=== PATIENT | female | born 1940 | race Caucasian/White ===

== ENCOUNTER 2022-07-24 14:24 | Emergency (ER) | payer MEDICARE, SELFPAY ==
--- NOTE | ~2022-07-24 | CT_ITS ---
EXAMINATION: CT brain wo con DATE: 07/24/2022 14:59 INDICATION: Head injury. TECHNIQUE: Computed tomography (CT) of the head was performed without intravenous contrast. The mA wa s adjusted according to patient size. Iterative reconstruction technique was employed. The dose-lengt h product was 605.33 mGy-cm. COMPARISON: None FINDINGS: There are scattered areas of low attenuation in the cerebral white matter. There is no intr acranial hemorrhage, acute infarction, or abnormal intracranial mass lesion. The ventricles are oma l in size. There are likely changes of ocular lens replacement surgeries. There are fractures of righ t zygomatic arch and posterolateral wall of right maxillary sinus. There is hematoma in right maxilla ry sinus. The mastoid air cells are normal. IMPRESSION: 1. Moderate nonspecific cerebral white matter disease, which likely represents chronic small vessel i schemic disease. 2. Right zygomaticomaxillary complex fractures. Reviewed, dictated and finalized at location A. IMPRESSION: 1. Moderate nonspecific cerebral white matter disease, which likely represents chronic small vessel ischemic disease. 2. Right zygomaticomaxillary complex fractures.
--- NOTE | ~2022-07-24 | XR_ITS ---
EXAMINATION: XR shoulder RT min 2V DATE: 07/24/2022 15:04 INDICATION: Fall with bruising and limited range of motion at the right shoulder TECHNIQUE: AP internally and externally rotated, AP oblique externally rotated and transscapular Y vi ews of the right shoulder were obtained. COMPARISON: None FINDINGS: Comminuted proximal right humeral fracture. This includes a transverse fracture to surgical neck with posterior angulation and posterior impaction with approximately 2 cm proximal migration of the poste rior margin of the fracture relative to the corresponding fracture margin of the humeral head. Fina l head remains normally centered over the glenoid but is rotated as with elevation of the arm. Mildly displaced fracture plane involving the greater tuberosity which is from the humeral head b y 4-5 mm wide lucency with irregular margins. There is a small minimally displaced fracture fragment anteromedially which appears to involve the caudal aspect of the lesser tuberosity. No other fracture s identified. Specifically the scapula and clavicle remain intact with mild acromioclavicular osteoar thritis. Small marginal osteophytes along the posterior glenoid consistent with at least mild glenohu meral osteoarthritis. There appears be some soft tissue swelling at the proximal upper arm. There is a focal airspace opacity in the right middle lobe best appreciated on the Grashey projection which co uld represent atelectasis or pneumonia. IMPRESSION: 1. Comminuted two-part fracture the proximal right humerus. 2. Small region of consolidation in the right middle lobe which could represent atelectasis or pneumo bj. Reviewed, dictated and finalized at location A. IMPRESSION: 1. Comminuted two-part fracture the proximal right humerus. 2. Small region of consolidation in the right middle lobe which could represent atelectasis or pneumonia.
--- NOTE | ~2022-07-24 | CT_ITS ---
EXAMINATION: CT facial & cervical spine wo DATE: 07/24/2022 14:59 INDICATION: Head injury. TECHNIQUE: Computed tomography (CT) of the maxillofacial region and cervical spine was performed with out intravenous contrast. Automated exposure control and iterative reconstruction technique were empl oyed. The dose-length product was 148.95 mGy-cm. COMPARISON: None FINDINGS: MAXILLOFACIAL CT: There are fractures of the right zygomatic arch, lateral wall and floor of right orbit, and posterola teral and anterior faria of right maxillary sinus. There is hematoma in right maxillary sinus. There are likely changes of ocular lens replacement surgeries. There is cerumen in the external auditory ca nals. CERVICAL SPINE CT: There is mild scarring at the lung apices. There is kyphosis and 11 degrees thoracic scoliosis of cer vical spine. Vertebral body heights are normal. There is moderately decreased disc height at C3-C4 an d severely decreased disc height from C4-C5 through C7-T1. The following disc levels are specifically discussed: C2-C3: There is mild bilateral uncovertebral joint osteoarthritis. There is moderate right and severe left facet joint osteoarthritis. There is mild left neural foraminal stenosis. There is no central c anal stenosis. C3-C4: There is ankylosis of the uncovertebral joints with mild hypertrophy. There is ankylosis of le ft facet joint with mild hypertrophy. There is mild left neural foraminal stenosis. There is no centr al canal stenosis. C4-C5: There is severe bilateral uncovertebral joint osteoarthritis. There is mild right and severe l eft facet joint osteoarthritis. There is mild right and moderate left neural foraminal stenosis. Ther e is mild central canal stenosis. C5-C6: There is severe bilateral uncovertebral joint osteoarthritis. There is mild bilateral facet miguel int osteoarthritis. There is mild bilateral neural foraminal stenosis. There is mild central canal st enosis. C6-C7: There is severe bilateral uncovertebral joint osteoarthritis. There is mild bilateral facet miguel int osteoarthritis. There is mild left neural foraminal stenosis. There is mild central canal stenosi s. C7-T1: There is mild bilateral uncovertebral joint osteoarthritis. There is severe bilateral facet miguel int osteoarthritis. There is mild left neural foraminal stenosis. There is no central canal stenosis. IMPRESSION: 1. Right zygomaticomaxillary complex fractures. 2. Severe cervical spondylosis. 3. Cervical dextroscoliosis and kyphosis. Reviewed, dictated and finalized at location A.
[2022-07-24 14:25] VITALS: BP 104/76; PULSE 189; RESP 18; TEMP 36.6; O2SAT 99
--- NOTE | 2022-07-24 14:43 | ED.HEATRA ---
HPI - Head Injury General Chief complaint: Head Injury Stated complaint: fall/ head injury Time Seen by Provider: 07/24/22 14:32 History of Present Illness HPI Narrative: Pt was on ladder cleaning gutters and fell off ladder and landed on concrete on right shoulder and face. Pt complains of right shoulder pain. Pt denies neck pain or GUERRA. Pt has small cut above right eye and skin tear on right quintero. Pt denies LOC. Related Data Allergies Allergy/AdvReac Type Severity Reaction Status Date / Time No Known Allergies Allergy Verified 07/24/22 15:17 Review of Systems Review of Systems: All systems reviewed & are unremarkable except as noted in HPI and below Exam Const: General: healthy appearing Nutritional Appearance: well nourished Orientation/consciousness: patient oriented x3 Limitations: no limitations HENMT: Head: laceration (superficial above right eye 1 cm) Face/Nose/Sinus: Epistaxis present (resoved) bilaterally Other: bruis and swelling righ cheek and mandible Eyes: Conjunctivae: conjunctivae normal EOM: EOMs intact bilaterally Neck: Neck: normal visual inspection, no lymphadenopathy and no meningeal signs Other: no midline pain Chest: Chest palpation & inspection: normal inspection of the chest Resp: Effort & Inspection: normal respiratory effort Auscultation: clear to auscultation bilaterally Cardio: Rate: regular rate Rhythm: regular rhythm GI: GI Palp: Yes Soft to palpation Auscultation: normal bowel sounds Neuro: General: patient oriented x3, moves all extremities and no focal motor deficits Cranial nerves: Yes CN's II-XII intact bilaterally Speech: normal speech Extrem: Other: tender swollen in area of proximal right humerus, skin tear right leg Psych: Mental Status: mental status grossly normal Affect: normal affect Attitude: cooperative Course Vital Signs Vital signs: Vital Signs Temperature 97.8 F 07/24/22 14:25 Pulse Rate 189 H 07/24/22 14:25 Respiratory Rate 18 07/24/22 14:25 Blood Pressure 104/76 07/24/22 14:25 Pulse Oximetry 99 07/24/22 14:25 Temperature 97.8 F 07/24/22 14:25 Pulse Rate 78 07/24/22 17:15 Respiratory Rate 17 07/24/22 17:15 Blood Pressure 121/64 07/24/22 17:15 Pulse Oximetry 96 07/24/22 17:15 MDM - Head Injury MDM Narrative Medical decision making narrative: 82 y/o fell off ladder landing on concrete, complain so fright shoulder pain. Pt has bruising to face and superficial laceration above right eye. will ct head and c spine and x ray right shoulder. pt has comminuted proximal humerus fx and numeropus facial fx's, discussed with Dr Rodriguez in ER at [place] will accept patient in transfer Lab Data 07/24/22 15:48 07/24/22 15:48 Labs: Lab Results 07/24/22 07/24/22 Range/Units 15:48 16:17 WBC 14.2 H (4.5-10.0) K/mm3 RBC 4.33 (4.2-5.4) M/mm3 Hgb 13.0 (12.0-15.0) g/dL Hct 39.4 (37.0-47.0) % MCV 91.0 (80-100) fl MCH 30.0 (26-34) pg MCHC 33.0 (32-36) g/dl RDW 13.2 (11.5-14.5) % Plt Count 248 (150-375) k/mm3 MPV 10.5 H (7.4-10.4) fl Immature Gran % (Auto) 0.4 (0-0.5) % Neut % (Auto) 86.3 H (45.5-73.1) % Lymph % (Auto) 6.0 L (18.3-44.2) % Frio % (Auto) 6.9 (2.6-8.5) % Eos % (Auto) 0.0 (0-4.4) % Baso % (Auto) 0.4 (0.2-1.2) % Lymph # (Auto) 0.85 L (0.9-3.2) K/mm3 Frio # (Auto) 1.0 H (0.1-0.6) K/mm3 Eos # (Auto) 0.0 (0-0.3) K/mm3 Baso # (Auto) 0.1 (0.0-0.1) K/mm3 Abs Immat Gran (auto) 0.05 H (0.00-0.031) K/mm3 Absolute Neuts (auto) 12.2 H (1.3-6.7) K/mm3 Absolute Nucleated RBC 0.0 (0.0-0.012) K/mm3 Nucleated RBC % 0.0 (0.0-0.2) % PT 13.5 (11.1-14.7) Seconds INR 1.0 APTT 25.7 (22.3-36.8) SECONDS Sodium 137 (137-145) mmol/L Potassium 3.7 (3.4-5.0) mmol/L Chloride 100 (98-107) mmol/L Carbon Dioxide 29 (22-30) mmol/L Anion Gap 8 (8-16) mmol/L
[2022-07-24] MEDS: fentaNYL CITRATE INJ (*CRX) 100 MCG/2 ML VIAL 25 MCG IM (15:07)
[2022-07-24 16:00] VITALS: BP 120/66; PULSE 76; RESP 16; O2SAT 91
[2022-07-24 16:05] LABS: Basophils Absolute Auto 0.1 K/mm3 (0.0-0.1); Basophils Percent Auto 0.4 % (0.2-1.2); Hematocrit 39.4 % (37.0-47.0); Immature Granulocyte Absolute 0.05 K/mm3 (0.00-0.031); Immature Granulocyte Percent A 0.4 % (0-0.5); Lymphocytes Absolute Auto 0.85 K/mm3 (0.9-3.2); Mean Platelet Volume 10.5 fl (7.4-10.4); Monocytes Percent Auto 6.9 % (2.6-8.5); Neutrophils Absolute Auto 12.2 K/mm3 (1.3-6.7); Neutrophils Percent Auto 86.3 % (45.5-73.1); Platelet Count Result 248 k/mm3 (150-375); Red Blood Count 4.33 M/mm3 (4.2-5.4); Red Cell Distribution Width 13.2 % (11.5-14.5); White Blood Count 14.2 K/mm3 (4.5-10.0)
[2022-07-24 16:10] VITALS: BP 120/76; PULSE 79; RESP 16; O2SAT 98
[2022-07-24 16:33] LABS: Prothrombin Time 13.5 Seconds (11.1-14.7)
[2022-07-24 16:34] LABS: Partial Thromboplastin Time 25.7 SECONDS (22.3-36.8)
[2022-07-24 17:00] VITALS: BP 125/68; PULSE 76; RESP 18; O2SAT 94
[2022-07-24 17:15] VITALS: BP 121/64; PULSE 78; RESP 17; O2SAT 96
[2022-07-24 17:30] LABS: Alanine Aminotransferase 213 U/L (6-35); Alkaline Phosphatase 69 U/L (38-126); Anion Gap 8 mmol/L (8-16); Aspartate Amino Transferase 311 U/L (14-36); Bilirubin,Total 1.1 mg/dL (0.2-1.3); Blood Urea Nitrogen 27 mg/dL (7-17); Calcium 9.1 mg/dL (8.4-10.2); Carbon Dioxide 29 mmol/L (22-30); Chloride 100 mmol/L (98-107); Estimated CRCL calculation 46 ml/min; Estimated Glomerular Filt Rate > 60; Glucose 131 mg/dL (65-110); Potassium 3.7 mmol/L (3.4-5.0); Sodium 137 mmol/L (137-145)
== END 2022-07-24 17:30 | disposition short-term general hospital (02) ==
PROVIDERS: Emergency Provider Emergency Medicine
DX: S42.201A Unspecified fracture of upper end of right humerus, initial encounter for closed fracture (principal); S02.40EA Zygomatic fracture, right side, initial encounter for closed fracture; S01.81XA Laceration without foreign body of other part of head, initial encounter; W11.XXXA Fall on and from ladder, initial encounter
CPT/HCPCS: 36415; 70450; 70486; 72125; 73030; 80053; 85025; 85610; 85730; 86850; 86900; 86901; 96372; 99285; A4565; J3010

== ENCOUNTER 2022-09-23 12:30 | Outpatient (RCR) | payer MEDICARE, SELFPAY ==
--- NOTE | 2022-08-01 08:15 | OPREHPOC ---
Outpatient Therapy Plan of Care This is a Multidisciplinary Plan of Care that may contain components documented by all disciplines (PT, OT, and ST.) PT Problem 1 PT Problem #1 Knowledge Deficit PT Goal 1 Goal Independent with HEP Target Visit 8 PT Problem 2 PT Problem #2 Impaired Range of Motion PT Goal 1 Goal R shoulder range of motion: flexion and abduction 90 degrees Target Visit 8 PT Goal 2 Goal R elbow active range of motion 0-160 degrees Target Visit 8
--- NOTE | 2022-08-01 08:15 | PTOPEVAL1 ---
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 Went to [facility] and then was transferred to [facility]. Left [place] in sling with HEP of hand, wrist, elbow, neck, shoulder, and lower extremity exercises. According to documentation patient brought with her and double checking with doctor's office, rachel Pollard WBAT in the arm can take arm out of sling for exercises and no restrictions with shoulder movement. Reported Pain Level Pain Score 0: Self Report Additional Pain Score Comments no pain in sling, pain with movement of the shoulder and extending elbow. Assessment PT Clinical Summary Binta is an 81 year old female coming in the clinic with a diagnosis of R proximal humeral fx roughly 1 week old. Patient will come to therapy to maintain and if possible improve current shoulder and elbow range of motion, reduce swelling in the hand. Will hold off on strengthening until seen by orthopedic surgeon on 08/19/22. Manual and modalities as needed for pain control. Plan of Care Interventions Electrical Stimulation,Gait Training,Hot Pack/Cold Pack,Manual Therapy,Neuro Re-education,Patient/ Caregiver Education,Therapeutic Activities, Therapeutic Exercise,Ultrasound PT Services Indicated Yes Treatment Frequency and 1-2x/wk for 4 weeks Duration These treatments will address the objective and functional deficits as defined above. The patient will be advanced safely and appropriately in order for the patient to progress towards his/her prior level of function. Additional exercises will be introduced and as well as a comprehensive home exercise program upon discharge, if needed, ?to ensure carryover of functional gains achieved in the clinic. This treatment plan has been reviewed and agreement upon by the patient.
--- NOTE | 2022-08-26 13:56 | PTOPPROG ---
Assessment and note entered by Eulogio Gibbons, PT Evaluation Information Assessment Status Progress Diagnosis Closed fx of proximal end of R humerus Onset 07/24/22 Subjective Information Patient reports seeing the orthopedic doctor and they are happy with her progress. She no longer has to wear the sling and can attempt anything she was doing prior to the injury just being wary of pain. 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 Assessment PT Clinical Summary Binta is an 81 year old female coming into the clinic with a diagnosis of Closed fracture of the proximal end of the R humerus. She was evaluated on 07/30/22 and has so far attended 9 sessions. She has met her active shoulder flexion goal, but not elbow extension or shoulder abduction goal. Recommend continued therapy to progress patient to more functional active range of motion and strength. Modalities and manual therapy as needed for pain. Plan of Care Interventions Gait Training,Hot Pack/Cold Pack,Manual Therapy, Neuro Re-education,Patient/Caregiver Education, Therapeutic Activities,Therapeutic Exercise Other Interventions cupping, taping, and IASTM PT Services Indicated Yes Treatment Frequency and 1-2x/wk for 4 weeks Duration These treatments will address the objective and functional deficits as defined above. The patient will be advanced safely and appropriately in order for the patient to progress towards his/her prior level of function. Additional exercises will be introduced and as well as a comprehensive home exercise program upon discharge, if needed, ?to ensure carryover of functional gains achieved in the clinic. This treatment plan has been reviewed and agreement upon by the patient.
--- NOTE | 2022-09-23 14:27 | PTOPDC ---
Assessment and note entered by Eulogio Gibbons, PT Evaluation Information Assessment Status Discharge Diagnosis Closed fx of proximal end of the Right humerus Onset 07/24/22 Subjective Information Patient reports she is having no real issues with her shoulder. It does not go up to the same height the L side, but is WFL. Is able to do all of her prior activities without pain in the shoulder. Still has some tenderness along the break line, but she is massaging it. Reported Pain Level Pain Score 0: Self Report Assessment PT Clinical Summary Binta is an 81 year old female coming into the clinic with a diagnosis of R proximal humeral fx. Patient was evaluated on 07/30/22 and has attended 13 visits. She has met her elbow range of motion and flexion range of motion goal, but not her abduction goal. Patent reports not having issues with her ADL's or other chores around the house. She feels okay with her HEP and is okay with discharge from skilled physical therapy. Plan of Care PT Services Indicated No
== END 2022-09-24 08:32 | disposition home or self-care (01) ==
LOC: ANHPT 12:30
DX: S42.201D Unspecified fracture of upper end of right humerus, subsequent encounter for fracture with routine healing (principal)
CPT/HCPCS: 97110; 97112; 97140; 97161